=== PATIENT | male | born 1940 | race Caucasian/White ===

== ENCOUNTER 2019-05-22 15:15 | Inpatient (IN) | payer MEDICARE ==
[~2019-05-22] VITALS: Ht 170.2 cm; Wt 106.6 kg
[2019-05-22 16:01] LABS: BASO # 0.1 x10^3/uL (0.0-0.2); BASO % 1 % (0-3); EOS # 0.1 x10^3/uL (0.0-0.7); EOS % 1 % (0-3); HEMATOCRIT 47.8 % (39.0-53.0); HEMOGLOBIN 15.9 g/dL (13.0-17.5); LYMPH # 0.9 x10^3/uL (1.0-4.8); LYMPH % 11 % (24-48); MEAN CORPUSCULAR HEMOGLOBIN 30 pg (25-35); MEAN CORPUSCULAR HGB CONC 33 g/dL (31-37); MEAN CORPUSCULAR VOLUME 91 fL (79-100); MONO # 0.5 x10^3/uL (0.0-1.1); MONO % 7 % (0-9); NEUT # 6.5 x10^3/uL (1.8-7.7); NEUT % 81 % (31-73); PLATELET COUNT 188 x10^3/uL (140-400); RED BLOOD COUNT 5.26 x10^6/uL (4.30-5.70); RED CELL DISTRIBUTION WIDTH 14.3 % (11.5-14.5); WHITE BLOOD COUNT 8.1 x10^3/uL (4.0-11.0)
[2019-05-22 16:11] LABS: CALCIUM 9.3 mg/dL (8.5-10.1); GFR 72.6
--- NOTE | 2019-05-22 16:13 | PHYS DOC ---
Past Medical History Past Medical History: Other Additional Past Medical Histor: LOWER EXTREMITY EDEMA Past Surgical History: No Surgical History Alcohol Use: Rarely Drug Use: None Adult General Chief Complaint Chief Complaint: LOWER EXTREMITY SWELLING HPI HPI Patient is a 78 year old male who presents with states for the past week he's an increase in left lower leg swelling and redness with drainage. The skin is red and warm. Patient's states he does not have a primary care provider and is o n no medications and has no known drug allergies. He rates his pain a 0 out of 10 at this time. Review of Systems Review of Systems Constitutional: Denies fever or chills [] Eyes: Denies change in visual acuity, redness, or eye pain [] HENT: Denies nasal congestion or sore throat [] Respiratory: Denies cough or shortness of breath [] Cardiovascular: No additional information not addressed in HPI [] GI: Denies abdominal pain, nausea, vomiting, bloody stools or diarrhea [] : Denies dysuria or hematuria [] Musculoskeletal: Denies back pain or joint pain [] Integument: Left lower leg swelling and redness. Denies rash or skin lesions [] Neurologic: Denies headache, focal weakness or sensory changes [] Endocrine: Denies polyuria or polydipsia [] All other systems were reviewed and found to be within normal limits, except as documented in this note. Current Medications Current Medications Current Medications Medications (Trade) Dose Ordered Sig/Rosita Start Time Stop Time Status Last Admin Dose Admin Cefazolin Sodium 50 ml @ 100 mls/hr 1X ONCE 05/22/19 17:15 05/22/19 17:44 Sodium Chloride 1,000 ml @ 1,000 mls/hr 1X ONCE 05/22/19 16:45 05/22/19 17:44 05/22/19 16:53 1,000 MLS/HR Vancomycin HCl (Vanco Per Pharmacy) 1 each PRN DAILY PRN 05/22/19 16:45 UNV Vancomycin HCl 2 gm/Sodium Chloride 500 ml @ 250 mls/hr 1X ONCE 05/22/19 17:00 05/22/19 18:59 05/22/19 17:02 250 MLS/HR Allergies Allergies Allergies Coded Allergies Type Severity Reaction Last Updated Verified No Known Drug Allergies 05/22/19 No Physical Exam Physical Exam Constitutional: Well developed, well nourished, no acute distress, non-toxic appearance. [] HENT: Normocephalic, atraumatic, bilateral external ears normal, oropharynx moist, no oral exudates, nose normal. [] Eyes: PERRLA, EOMI, conjunctiva normal, no discharge. [] Neck: Normal range of motion, no tenderness, supple, no stridor. [] Cardiovascular:Heart rate regular rhythm, no murmur [] Lungs & Thorax: Bilateral breath sounds clear to auscultation [] Abdomen: Bowel sounds normal, soft, no tenderness, no masses, no pulsatile ma sses. [] Skin: Left lower leg redness, weeping. Warm, dry, no erythema, no rash. [] Back: No tenderness, no CVA tenderness. [] Extremities: No tenderness, no cyanosis, no clubbing, ROM intact, left lower leg 3+ pitting edema, right lower leg 2+ pitting edema. [] Neurologic: Alert and oriented X 3, normal motor function, normal sensory function, no focal deficits noted. [] Psychologic: Affect normal, judgement normal, mood normal. [] Current Patient Data Vital Signs Vital Signs Date Time Temp Pulse Resp B/P (MAP) Pulse Ox O2 Delivery O2 Flow Rate FiO2 05/22/19 15:41 98.0 57 18 158/91 (113) 98 Room Air 98.0 Lab Values Laboratory Tests Test 05/22/19 15:40 White Blood Count 8.1 x10^3/uL (4.0-11.0) Red Blood Count 5.26 x10^6/uL (4.30-5.70) Hemoglobin 15.9 g/dL (13.0-17.5) Hematocrit 47.8 % (39.0-53.0) Mean Corpuscular Volume 91 fL (79-100) Mean Corpuscular Hemoglobin 30 pg (25-35) Mean Corpuscular Hemoglobin Concent 33 g/dL (31-37) Red Cell Distribution Width 14.3 % (11.5-14.5) Platelet Count 188 x10^3/uL (140-400) Neutrophils (%) (Auto) 81 % (31-73) H Lymphocytes (%) (Auto) 11 % (24-48) L Monocytes (%) (Auto) 7 % (0-9) Eosinophils (%) (Auto) 1 % (0-3) Basophils (%) (Auto) 1 % (0-3) Neutrophils # (Auto) 6.5 x10^3/uL (1.8-7.7) Lymphocytes # (Auto) 0.9 x10^3/uL (1.0-4.8) L Monocytes # (Auto) 0.5 x10^3/uL (0.0-1.1) Eosinophils # (Auto) 0.1 x10^3/uL (0.0-0.7) Basophils # (Auto) 0.1 x10^3/uL (0.0-0.2) Erythrocyte Sedimentation Rate 6 (0-15) Sodium Level 142 mmol/L (136-145) Potassium Level 4.0 mmol/L (3.5-5.1) Chloride Level 105 mmol/L (98-107) Carbon Dioxide Level 26 mmol/L (21-32) Anion Gap 11 (6-14) Blood Urea Nitrogen 18 mg/dL (8-26) Creatinine 1.0 mg/dL (0.7-1.3) Estimated GFR (Cockcroft-Gault) 72.6 BUN/Creatinine Ratio 18 (6-20) Glucose Level 120 mg/dL (70-99) H Lactic Acid Level 2.4 mmol/L (0.4-2.0) H Calcium Level 9.3 mg/dL (8.5-10.1) Total Bilirubin 0.8 mg/dL (0.2-1.0) Aspartate Amino Transferase (AST) 17 U/L (15-37) Alanine Aminotransferase (ALT) 17 U/L (16-63) Alkaline Phosphatase 82 U/L (46-116) C-Reactive Protein, Quantitative 18.5 mg/L (0-3.3) H Total Protein 7.9 g/dL (6.4-8.2) Albumin 3.8 g/dL (3.4-5.0) Albumin/Globulin Ratio 0.9 (1.0-1.7) L Laboratory Tests 05/22/19 15:40 Laboratory Tests 05/22/19 15:40 EKG EKG [] Radiology/Procedures Radiology/Procedures [] Impressions: IMAGING REPORT Signed PATIENT: WILFRID HSU ACCOUNT: [id number] : 1940 LOCATION: ER AGE: 78 SEX: M EXAM STATUS: REG ER ORD. PHYSICIAN: DOROTHY LACY APRN REASON: LT Leg swollen, pain PROCEDURE: VENOUS LOWER EXTREMITY LEFT Left lower extremity venous doppler ultrasound History: Swelling and pain Comparison: None Findings: Multiple grayscale, color, and duplex spectral analysis sonographic images were acquired of the left lower extremity veins to evaluate for the presence of DVT. There is abnormal echogenicity in the distal left superficial femoral vein and popliteal vein, apparently occluded. Left peroneal veins could also not be visualized. There is soft tissue swelling of the left calf. Left common femoral vein and proximal to mid left superficial femoral vein are patent, normal color flow and phasicity. There is normal color flow of the proximal left greater saphenous vein, also proximal left profunda femoris vein. Impression: 1. There is occlusive thrombus of the distal left superficial femoral vein and popliteal vein, left peroneal veins also not visualized. There is edema of left calf soft tissues. FOR INTERNAL CODING PURPOSES Critical result: Findings discussed with DOROTHY LACY at 05/22/2019 5:06 PM. RESULT CODE: (C) Electronically signed by: Baldo Barton MD (05/22/2019 5:07 PM) [id number] DICTATED and SIGNED BY: BALDO BARTON MD DATE: 05/22/19 170 Course & Med Decision Making Course & Med Decision Making Patient is a 78 year old male who presents with states for the past week he's an increase in left lower leg swelling and redness with drainage. The skin is red and warm. Patient's states he does not have a primary care provider and is on no medications and has no known drug allergies. He rates his pain a 0 out of 10 at this time. Right lower leg has 2+ pitting edema in left lower leg is red a nd swollen with 3+ pitting edema. Pedal pulses present on the right and I cannot fill it on the left side due to the swelling. Skin is blanchable and refill less than 3 seconds. Left lower leg skin is red, weeping, hot to touch. The redness is circumferential around the left lower leg. Patient has no calf tenderness with palpation. Vital signs within normal limits. Patient denies fever, shortness of air, weakness, body aches, nausea, vomiting, dizziness, dysuria, chest pain, numbness or tingling. Alert and oriented. Walks with a steady gait. Speaks in full clear sentences. Skin pink warm and dry. Mucous membranes moist. Lungs are clear to auscultation all lobes. Heart regular without murmur. Upper extremities have no edema. Patient is placed on Vancomycin, cefazolin and Eliquis BID per Dr Mancini. Patient admitted per Dr Mancini. Dragon Disclaimer Alpesh Disclaimer This electronic medical record was generated, in whole or in part, using a voice recognition dictation system. Departure Departure Impression: Primary Impression: Cellulitis Disposition: ADMITTED INPATIENT Admitting Physician: STANISLAV Condition: STABLE Referrals: NO PCP (PCP) Problem Qualifiers Primary Impression: Cellulitis Site of cellulitis: extremity Site of cellulitis of extremity: lower extremity Laterality: left Qualified Codes: L03.116 - Cellulitis of left lower limb DOROTHY LACY POLITICAL RESEARCH SCIENTIST May 22, 2019 16:13
[2019-05-22 16:25] LABS: ALBUMIN 3.8 g/dL (3.4-5.0); ALBUMIN/GLOBULIN RATIO 0.9 (1.0-1.7); C-REACTIVE PROTEIN 18.5 mg/L (0-3.3); TOTAL BILIRUBIN 0.8 mg/dL (0.2-1.0); TOTAL PROTEIN 7.9 g/dL (6.4-8.2)
[2019-05-22] MEDS ORDERED: VANCOMYCIN PER PHARMACY MC PRN (16:45)
[2019-05-22] MEDS ORDERED: IV NORMAL SALINE 1000ML BAG 1,000 ML IV ONE ×2 (16:45)
[2019-05-22] MEDS ORDERED: VANCOMYCIN 2 GM in IV NORMAL SALINE 500ML BAG 500 ML IV ONE (17:00)
--- NOTE | 2019-05-22 17:01 | PDOC1 ---
History and Physical Date of Admission Date of Admission DATE: 05/22/19 TIME: 17:01 Identification/Chief Complaint Chief Complaint Cellulitis Source Source: Patient History of Present Illness History of Present Illness Mr Lorenz is a 78 yo male with no PMHx, ex-smoker, has not seen a physician in over a decade, who presents with left leg swelling and progressive redness for the past week. He now notes he brushed it against a chair now has serous drainage. The skin is red and warm. He rates his pain a 2 out of 10 at this time. Left lower leg skin is red, weeping, hot to touch. The redness is circumferential around the left lower leg. He had elevated lactate of 2.4. CRP 18.5. No leukocytosis. Patient has no calf tenderness with palpation. Patient denies fever, shortness of air, weakness, body aches, nausea, vomiting, dizziness, dysuria, chest pain, numbness or tingling. No recent travel or sick contacts. He did have LLE US and it did show a superficial clot. Admitted for further care Past Medical History Cardiovascular: No pertinent hx Pulmonary: No pertinent hx GI: No pertinent hx Heme/Onc: No pertinent hx Hepatobiliary: No pertinent hx Psych: No pertinent hx Rheumatologic: No pertinent hx Infectious disease: No pertinent hx ENT: No pertinent hx Renal/: No pertinent hx Endocrine: No pertinent hx Dermatology: No pertinent hx Past Surgical History Past Surgical History: No pertinent history Family History Family History: High Cholestrol Social History Smoke: No ALCOHOL: rare Drugs: None Current Problem List Problem List Problems Medical Problems: (1) Cellulitis Status: Acute Current Medications Current Medications Current Medications Sodium Chloride 1,000 ml @ 1,000 mls/hr 1X ONCE IV Last administered on 05/22/19at 16:53; Start 05/22/19 at 16:45; Stop 05/22/19 at 17:44 Sodium Chloride 1,000 ml @ 1,000 mls/hr 1X ONCE IV Last administered on 05/22/19at 16:53; Start 05/22/19 at 16:45; Stop 05/22/19 at 17:44 Vancomycin HCl (Vanco Per Pharmacy) 1 each PRN DAILY PRN MC SEE COMMENTS; Start 05/22/19 at 16:45; Status UNV Vancomycin HCl 2 gm/Sodium Chloride 500 ml @ 250 mls/hr 1X ONCE IV ; Start 05/22/19 at 17:00; Stop 05/22/19 at 18:59 Allergies Allergies: Coded Allergies: No Known Drug Allergies (Unverified , 05/22/19) ROS General: YES: Fatigue, Malaise; No: Chills, Night Sweats, Appetite, Other PSYCHOLOGICAL ROS: No: Anxiety, Behavioral Disorder, Concentration difficultie, Decreased libido, Depression, Disorientation, Hallucinations, Hostility, Irritablity, Memory difficulties, Mood Swings, Obsessive thoughts, Physical abuse, Sexual abuse, Sleep disturbances, Suicidal ideation, Other Eyes: No Blurry vision, No Decreased vision, No Double vision, No Dry eyes, No Excessive tearing, No Eye Pain, No Itchy Eyes, No Loss of vision, No Photophobia, No Scotomata, No Uses contacts, No Uses glasses, No Other HEENT: No: Heacaches, Visual Changes, Hearing change, Nasal congestion, Nasal d ischarge, Oral lesions, Sinus pain, Sore Throat, Epistaxis, Sneezing, Snoring, Tinnitus, Vertigo, Vocal changes, Other ALLERGY AND IMMUNOLOGY: No: Hives, Insect Bite Sensitivity, Itchy/Watery Eyes, Nasal Congestion, Post Nasal Drip, Seasonal Allergies, Other Hematological and Lymphatic: No: Bleeding Problems, Blood Clots, Blood Transfusions, Brusing, Night Sweats, Pallor, Swollen Lymph Nodes, Other ENDOCRINE: No: Breast Changes, Galactorrhea, Hair Pattern Changes, Hot Flashes, Malaise/lethargy, Mood Swings, Palpitations, Polydipsia/polyuria, Skin Changes, Temperature Intolerance, Unexpected Weight Changes, Other Breast: No New/Changing Breast Lumps, No Nipple changes, No Nipple discharge, No Other Respiratory: No: Cough, Hemoptysis, Orthopnea, Pleuritic Pain, Shortness of nella ath, SOB with excertion, Sputum Changes, Stridor, Tachypnea, Wheezing, Other Cardiovascular: No Chest Pain, No Palpitations, No Orthopnea, No Paroxysmal Noc. Dyspnea, No Edema, No Lt Headedness, No Other Gastrointestinal: No Nausea, No Vomiting, No Abdominal Pain, No Diarrhea, No Constipation, No Melena, No Hematochezia, No Other Genitourinary: No Dysuria, No Frequency, No Incontinence, No Hematuria, No Retention, No Discharge, No Urgency, No Pain, No Flank Pain, No Other, No , No , No , No , No , No , No Musculoskeletal: No Gait Disturbance, No Joint Pain, No Joint Stiffness, No Joint Swelling, No Muscle Pain, No Muscular Weakness, No Pain In:, No Swelling In:, No Other Neurological: No Behavorial Changes, No Bowel/Bladder ControlChng, No Confusion, No Dizziness, No Gait Disturbance, No Headaches, No Impaired Coord/balance, No Memory Loss, No Numbness/Tingling, No Seizures, No Speech Problems, No Tremors, No Visual Changes, No Weakness, No Other Skin: No Dry Skin, No Eczema, No Hair Changes, No Lumps, No Mole Changes, No Mottling, No Nail Changes, No Pruritus, No Rash, No Skin Lesion Changes, No Other, No Acne Physical Exam General: Alert, Oriented X3, Cooperative, No acute distress HEENT: Atraumatic, PERRLA, EOMI, Mucous membr. moist/pink Lungs: Clear to auscultation, Normal air movement Heart: S1S2, RRR, no gallops, no murmurs Abdomen: Normal bowel sounds, Soft, No tenderness, No hepatosplenomegaly, No masses Rectal Exam: not examined Extremities: No clubbing, No cyanosis, Normal pulses, Other (3+ edema left leg, tender and swollen) Skin: No breakdown, Other (6x8 cm circumferential redness of LLE with anterior weeping of serous fluid. hot to the touch) Neuro: Normal gait, Normal speech, Strength at 5/5 X4 ext, Normal tone, Sensation intact, Cranial nerves 3-12 NL, Reflexes 2+ Psych/Mental Status: Mental status NL, Mood NL Vitals Vitals Vital Signs Date Time Temp Pulse Resp B/P (MAP) Pulse Ox O2 Delivery O2 Flow Rate FiO2 05/22/19 15:41 98.0 57 18 158/91 (113) 98 Room Air 98.0 Labs Labs Laboratory Tests Test 05/22/19 15:40 White Blood Count 8.1 x10^3/uL (4.0-11.0) Red Blood Count 5.26 x10^6/uL (4.30-5.70) Hemoglobin 15.9 g/dL (13.0-17.5) Hematocrit 47.8 % (39.0-53.0) Mean Corpuscular Volume 91 fL (79-100) Mean Corpuscular Hemoglobin 30 pg (25-35) Mean Corpuscular Hemoglobin Concent 33 g/dL (31-37) Red Cell Distribution Width 14.3 % (11.5-14.5) Platelet Count 188 x10^3/uL (140-400) Neutrophils (%) (Auto) 81 % (31-73) Lymphocytes (%) (Auto) 11 % (24-48) Monocytes (%) (Auto) 7 % (0-9) Eosinophils (%) (Auto) 1 % (0-3) Basophils (%) (Auto) 1 % (0-3) Neutrophils # (Auto) 6.5 x10^3/uL (1.8-7.7) Lymphocytes # (Auto) 0.9 x10^3/uL (1.0-4.8) Monocytes # (Auto) 0.5 x10^3/uL (0.0-1.1) Eosinophils # (Auto) 0.1 x10^3/uL (0.0-0.7) Basophils # (Auto) 0.1 x10^3/uL (0.0-0.2) Sodium Level 142 mmol/L (136-145) Potassium Level 4.0 mmol/L (3.5-5.1) Chloride Level 105 mmol/L (98-107) Carbon Dioxide Level 26 mmol/L (21-32) Anion Gap 11 (6-14) Blood Urea Nitrogen 18 mg/dL (8-26) Creatinine 1.0 mg/dL (0.7-1.3) Estimated GFR (Cockcroft-Gault) 72.6 BUN/Creatinine Ratio 18 (6-20) Glucose Level 120 mg/dL (70-99) Lactic Acid Level 2.4 mmol/L (0.4-2.0) Calcium Level 9.3 mg/dL (8.5-10.1) Total Bilirubin 0.8 mg/dL (0.2-1.0) Aspartate Amino Transf (AST/SGOT) 17 U/L (15-37) Alanine Aminotransferase (ALT/SGPT) 17 U/L (16-63) Alkaline Phosphatase 82 U/L (46-116) C-Reactive Protein, Quantitative 18.5 mg/L (0-3.3) Total Protein 7.9 g/dL (6.4-8.2) Albumin 3.8 g/dL (3.4-5.0) Albumin/Globulin Ratio 0.9 (1.0-1.7) Laboratory Tests Test 05/22/19 15:40 White Blood Count 8.1 x10^3/uL (4.0-11.0) Red Blood Count 5.26 x10^6/uL (4.30-5.70) Hemoglobin 15.9 g/dL (13.0-17.5) Hematocrit 47.8 % (39.0-53.0) Mean Corpuscular Volume 91 fL (79-100) Mean Corpuscular Hemoglobin 30 pg (25-35) Mean Corpuscular Hemoglobin Concent 33 g/dL (31-37) Red Cell Distribution Width 14.3 % (11.5-14.5) Platelet Count 188 x10^3/uL (140-400) Neutrophils (%) (Auto) 81 % (31-73) Lymphocytes (%) (Auto) 11 % (24-48) Monocytes (%) (Auto) 7 % (0-9) Eosinophils (%) (Auto) 1 % (0-3) Basophils (%) (Auto) 1 % (0-3) Neutrophils # (Auto) 6.5 x10^3/uL (1.8-7.7) Lymphocytes # (Auto) 0.9 x10^3/uL (1.0-4.8) Monocytes # (Auto) 0.5 x10^3/uL (0.0-1.1) Eosinophils # (Auto) 0.1 x10^3/uL (0.0-0.7) Basophils # (Auto) 0.1 x10^3/uL (0.0-0.2) Sodium Level 142 mmol/L (136-145) Potassium Level 4.0 mmol/L (3.5-5.1) Chloride Level 105 mmol/L (98-107) Carbon Dioxide Level 26 mmol/L (21-32) Anion Gap 11 (6-14) Blood Urea Nitrogen 18 mg/dL (8-26) Creatinine 1.0 mg/dL (0.7-1.3) Estimated GFR (Cockcroft-Gault) 72.6 BUN/Creatinine Ratio 18 (6-20) Glucose Level 120 mg/dL (70-99) Lactic Acid Level 2.4 mmol/L (0.4-2.0) Calcium Level 9.3 mg/dL (8.5-10.1) Total Bilirubin 0.8 mg/dL (0.2-1.0) Aspartate Amino Transf (AST/SGOT) 17 U/L (15-37) Alanine Aminotransferase (ALT/SGPT) 17 U/L (16-63) Alkaline Phosphatase 82 U/L (46-116) C-Reactive Protein, Quantitative 18.5 mg/L (0-3.3) Total Protein 7.9 g/dL (6.4-8.2) Albumin 3.8 g/dL (3.4-5.0) Albumin/Globulin Ratio 0.9 (1.0-1.7) Images Images LLE US - 1. There is occlusive thrombus of the distal left superficial femoral vein and popliteal vein, left peroneal veins also not visualized. There is edema of left calf soft tissues. VTE Prophylaxis Ordered VTE Prophylaxis Devices: No VTE Pharmacological Prophylaxi: Yes Assessment/Plan Assessment/Plan A/P: LLE cellulitis - significantly swollen and red. will give vancomycin and cefazolin. Check MRSA Nares and ASO titer. CBC in am. BMP daily LLE DVT - with both superficial femoral and popliteal clots, will given eliquis 10mg BID for 7 days, then 5mg BID thereafter. Hyperglycemia - will screen for DM2, check poc glucose, low sliding scale Lactic acidosis - related to cellulitis, will give IVF FEN - General PPX - eliquis FULL CODE Dispo - inpatient for LLE cellulitis complicated by DVT, likely 2 midnights. CYNDIE ESCOBAR MD May 22, 2019 17:01
--- NOTE | 2019-05-22 17:09 | RAD ---
Left lower extremity venous doppler ultrasound History: Swelling and pain Comparison: None Findings: Multiple grayscale, color, and duplex spectral analysis sonographic images were acquired of the left lower extremity veins to evaluate for the presence of DVT. There is abnormal echogenicity in the distal left superficial femoral vein and popliteal vein, apparently occluded. Left peroneal veins could also not be visualized. There is soft tissue swelling of the left calf. Left common femoral vein and proximal to mid left superficial femoral vein are patent, normal color flow and phasicity. There is normal color flow of the proximal left greater saphenous vein, also proximal left profunda femoris vein. Impression: 1. There is occlusive thrombus of the distal left superficial femoral vein and popliteal vein, left peroneal veins also not visualized. There is edema of left calf soft tissues. FOR INTERNAL CODING PURPOSES Critical result: Findings discussed with DOROTHY LACY at 05/22/2019 5:06 PM. RESULT CODE: (C) Electronically signed by: Chava Espinal MD (05/22/2019 5:07 PM) [id number]
[2019-05-22] MEDS ORDERED: ACETAMINOPHEN 325 MG TABLET. PO PRN (17:30)
[2019-05-22] MEDS ORDERED: ONDANSETRON PF 4 MG/2 ML VIAL. IV PRN (17:30)
[2019-05-22] MEDS ORDERED: fentaNYL PF VIAL 100 MCG/2 ML VIAL IV PRN (17:30)
--- NOTE | 2019-05-22 18:28 | NUR ---
Pharmacy Vancomycin Dosing Note S:Consulted to monitor and dose vancomycin started 05/22/19. O:WILFRID HSU is a 78 year old M with Cellulitis . Height: 5 feet, 6 inches Weight: 104.180016 kg [place] Body Weight: 63.80 Adjusted Body Weight: 79.88 Dosing Weight: Actual Other Antibiotics: ZOSYN LABS: Last BUN: 18 Last Creatinine: 1.0 Creatinine Clearance: mL/min Last WBC: 8.1 Last Procalcitonin: Tmax (past 24 hours): 98 Microbiology: I/O: Drug Levels: Last level: on at Last dose given at Vancomycin Dosing: Loading Dose: 2000 mg x1 Dosing Weight: Actual Target Trough: 10-20 A: Based on: WEIGHT AND RENAL FUNCTION, VANCOMYCIN 2GM IV BOLUS GIVEN, P: 1. Begin Vancomycin 1500 mg IV q12h 2. Follow up Trough level on 05/24/19 at 0430 3. Pharmacy will continue to monitor, follow and adjust therapy as needed. NATALIYA OSORIO [facility], 05/22/19 [id number]
[2019-05-22 19:00] VITALS: BP 143/78
[2019-05-22] MEDS ORDERED: DEXTROSE 50% 25 GM / 50ML DISP.SYRIN. IV PRN (20:30)
[2019-05-22] MEDS: APIXABAN 5 MG TABLET. PO SCH (20:52)
[2019-05-22 23:10] VITALS: BP 133/70
[2019-05-23 02:39] LABS: BASO % 1 % (0-3); EOS # 0.2 x10^3/uL (0.0-0.7); EOS % 3 % (0-3); HEMATOCRIT 42.2 % (39.0-53.0); HEMOGLOBIN 14.1 g/dL (13.0-17.5); LYMPH # 1.1 x10^3/uL (1.0-4.8); LYMPH % 18 % (24-48); MEAN CORPUSCULAR HEMOGLOBIN 30 pg (25-35); MEAN CORPUSCULAR HGB CONC 33 g/dL (31-37); MEAN CORPUSCULAR VOLUME 91 fL (79-100); MONO # 0.5 x10^3/uL (0.0-1.1); MONO % 9 % (0-9); NEUT # 4.3 x10^3/uL (1.8-7.7); NEUT % 70 % (31-73); PLATELET COUNT 153 x10^3/uL (140-400); RED BLOOD COUNT 4.65 x10^6/uL (4.30-5.70); RED CELL DISTRIBUTION WIDTH 14.5 % (11.5-14.5); WHITE BLOOD COUNT 6.2 x10^3/uL (4.0-11.0)
[2019-05-23 03:20] VITALS: BP 123/69
[2019-05-23] MEDS ORDERED: VANCOMYCIN 1.5 GM in IV NORMAL SALINE 500ML BAG 500 ML IV SCH (05:00)
[2019-05-23] MEDS ORDERED: ceFAZolin SODIUM IV Push 1 GM VIAL. IVP SCH (06:00)
[2019-05-23] MEDS ORDERED: ceFAZolin SODIUM 1 GM in IV DEXTROSE 5% 50 ML IV SCH (06:00)
[2019-05-23 07:25] VITALS: BP 145/74
[2019-05-23] MEDS: INSULIN LISPRO 300 UNITS/3 ML INSULN.PEN. SQ SCH ×2 (08:00→12:00)
--- NOTE | 2019-05-23 08:20 | PDOC ---
PROGRESS NOTES Chief Complaint Chief Complaint A/P: LLE cellulitis - significantly swollen and red. will give vancomycin and cefazolin. Check MRSA Nares and ASO titer. CBC in am. BMP daily LLE DVT - with both superficial femoral and popliteal clots, will given eliquis 10mg BID for 7 days, then 5mg BID thereafter. Hyperglycemia - will screen for DM2, check poc glucose, low sliding scale Lactic acidosis - related to cellulitis, will give IVF FEN - General PPX - eliquis FULL CODE Dispo - inpatient for LLE cellulitis complicated by DVT, likely 2 midnights. History of Present Illness History of Present Illness Mr Lorenz is a 78 yo male with no PMHx, ex-smoker, has not seen a physician in over a decade, who presents with left leg swelling and progressive redness for the past week. He now notes he brushed it against a chair now has serous drainage. The skin is red and warm. He rates his pain a 2 out of 10 at this time. Left lower leg skin is red, weeping, hot to touch. The redness is circumferential around the left lower leg. He had elevated lactate of 2.4. CRP 18.5. No leukocytosis. Patient has no calf tenderness with palpation. Patient denies fever, shortness of air, weakness, body aches, nausea, vomiting, dizziness, dysuria, chest pain, numbness or tingling. No recent travel or sick contacts. He did have LLE US and it did show popliteal clot. This morning his LLE redness is significantly improved. He has walked without pain. Has a bit of an unsteady gait today. He has been seen by ID, we have discussed switching to oral antibiotics given his quick improvement. Will assess need for gait assistance with PT and consider d/c later today with eliquis and doxycycline. Vitals Vitals Vital Signs Date Time Temp Pulse Resp B/P (MAP) Pulse Ox O2 Delivery O2 Flow Rate FiO2 05/23/19 07:25 97.8 51 18 145/74 (97) 98 Room Air 97.8 Physical Exam General: Alert, Oriented X3, Cooperative, No acute distress Heart: Regular rate, Normal S1, Normal S2 Lungs: Clear Abdomen: Normal bowel sounds, Soft, No tenderness, No hepatosplenomegaly, No masses Extremities: No clubbing, No cyanosis, Normal pulses, Other (3+ edema left leg, tender and swollen) Skin: No breakdown, Other (6x8 cm circumferential redness of LLE with anterior weeping of serous fluid. hot to the touch) Labs LABS Laboratory Tests Test 05/22/19 15:40 05/23/19 02:00 05/23/19 07:38 White Blood Count 8.1 x10^3/uL (4.0-11.0) 6.2 x10^3/uL (4.0-11.0) Red Blood Count 5.26 x10^6/uL (4.30-5.70) 4.65 x10^6/uL (4.30-5.70) Hemoglobin 15.9 g/dL (13.0-17.5) 14.1 g/dL (13.0-17.5) Hematocrit 47.8 % (39.0-53.0) 42.2 % (39.0-53.0) Mean Corpuscular Volume 91 fL (79-100) 91 fL (79-100) Mean Corpuscular Hemoglobin 30 pg (25-35) 30 pg (25-35) Mean Corpuscular Hemoglobin Concent 33 g/dL (31-37) 33 g/dL (31-37) Red Cell Distribution Width 14.3 % (11.5-14.5) 14.5 % (11.5-14.5) Platelet Count 188 x10^3/uL (140-400) 153 x10^3/uL (140-400) Neutrophils (%) (Auto) 81 % (31-73) 70 % (31-73) Lymphocytes (%) (Auto) 11 % (24-48) 18 % (24-48) Monocytes (%) (Auto) 7 % (0-9) 9 % (0-9) Eosinophils (%) (Auto) 1 % (0-3) 3 % (0-3) Basophils (%) (Auto) 1 % (0-3) 1 % (0-3) Neutrophils # (Auto) 6.5 x10^3/uL (1.8-7.7) 4.3 x10^3/uL (1.8-7.7) Lymphocytes # (Auto) 0.9 x10^3/uL (1.0-4.8) 1.1 x10^3/uL (1.0-4.8) Monocytes # (Auto) 0.5 x10^3/uL (0.0-1.1) 0.5 x10^3/uL (0.0-1.1) Eosinophils # (Auto) 0.1 x10^3/uL (0.0-0.7) 0.2 x10^3/uL (0.0-0.7) Basophils # (Auto) 0.1 x10^3/uL (0.0-0.2) 0.0 x10^3/uL (0.0-0.2) Erythrocyte Sedimentation Rate 6 (0-15) Sodium Level 142 mmol/L (136-145) Potassium Level 4.0 mmol/L (3.5-5.1) Chloride Level 105 mmol/L (98-107) Carbon Dioxide Level 26 mmol/L (21-32) Anion Gap 11 (6-14) Blood Urea Nitrogen 18 mg/dL (8-26) Creatinine 1.0 mg/dL (0.7-1.3) Estimated GFR (Cockcroft-Gault) 72.6 BUN/Creatinine Ratio 18 (6-20) Glucose Level 120 mg/dL (70-99) Lactic Acid Level 2.4 mmol/L (0.4-2.0) 1.0 mmol/L (0.4-2.0) Calcium Level 9.3 mg/dL (8.5-10.1) Total Bilirubin 0.8 mg/dL (0.2-1.0) Aspartate Amino Transf (AST/SGOT) 17 U/L (15-37) Alanine Aminotransferase (ALT/SGPT) 17 U/L (16-63) Alkaline Phosphatase 82 U/L (46-116) C-Reactive Protein, Quantitative 18.5 mg/L (0-3.3) Total Protein 7.9 g/dL (6.4-8.2) Albumin 3.8 g/dL (3.4-5.0) Albumin/Globulin Ratio 0.9 (1.0-1.7) Glucose (Fingerstick) 88 mg/dL (70-99) Assessment and Plan Assessmemt and Plan Problems Medical Problems: (1) Cellulitis Status: Acute Comment Review of Relevant I have reviewed the following items aixa (where applicable) has been applied. Labs Laboratory Tests Test 05/22/19 15:40 05/23/19 02:00 05/23/19 07:38 White Blood Count 8.1 x10^3/uL (4.0-11.0) 6.2 x10^3/uL (4.0-11.0) Red Blood Count 5.26 x10^6/uL (4.30-5.70) 4.65 x10^6/uL (4.30-5.70) Hemoglobin 15.9 g/dL (13.0-17.5) 14.1 g/dL (13.0-17.5) Hematocrit 47.8 % (39.0-53.0) 42.2 % (39.0-53.0) Mean Corpuscular Volume 91 fL (79-100) 91 fL (79-100) Mean Corpuscular Hemoglobin 30 pg (25-35) 30 pg (25-35) Mean Corpuscular Hemoglobin Concent 33 g/dL (31-37) 33 g/dL (31-37) Red Cell Distribution Width 14.3 % (11.5-14.5) 14.5 % (11.5-14.5) Platelet Count 188 x10^3/uL (140-400) 153 x10^3/uL (140-400) Neutrophils (%) (Auto) 81 % (31-73) 70 % (31-73) Lymphocytes (%) (Auto) 11 % (24-48) 18 % (24-48) Monocytes (%) (Auto) 7 % (0-9) 9 % (0-9) Eosinophils (%) (Auto) 1 % (0-3) 3 % (0-3) Basophils (%) (Auto) 1 % (0-3) 1 % (0-3) Neutrophils # (Auto) 6.5 x10^3/uL (1.8-7.7) 4.3 x10^3/uL (1.8-7.7) Lymphocytes # (Auto) 0.9 x10^3/uL (1.0-4.8) 1.1 x10^3/uL (1.0-4.8) Monocytes # (Auto) 0.5 x10^3/uL (0.0-1.1) 0.5 x10^3/uL (0.0-1.1) Eosinophils # (Auto) 0.1 x10^3/uL (0.0-0.7) 0.2 x10^3/uL (0.0-0.7) Basophils # (Auto) 0.1 x10^3/uL (0.0-0.2) 0.0 x10^3/uL (0.0-0.2) Erythrocyte Sedimentation Rate 6 (0-15) Sodium Level 142 mmol/L (136-145) Potassium Level 4.0 mmol/L (3.5-5.1) Chloride Level 105 mmol/L (98-107) Carbon Dioxide Level 26 mmol/L (21-32) Anion Gap 11 (6-14) Blood Urea Nitrogen 18 mg/dL (8-26) Creatinine 1.0 mg/dL (0.7-1.3) Estimated GFR (Cockcroft-Gault) 72.6 BUN/Creatinine Ratio 18 (6-20) Glucose Level 120 mg/dL (70-99) Lactic Acid Level 2.4 mmol/L (0.4-2.0) 1.0 mmol/L (0.4-2.0) Calcium Level 9.3 mg/dL (8.5-10.1) Total Bilirubin 0.8 mg/dL (0.2-1.0) Aspartate Amino Transf (AST/SGOT) 17 U/L (15-37) Alanine Aminotransferase (ALT/SGPT) 17 U/L (16-63) Alkaline Phosphatase 82 U/L (46-116) C-Reactive Protein, Quantitative 18.5 mg/L (0-3.3) Total Protein 7.9 g/dL (6.4-8.2) Albumin 3.8 g/dL (3.4-5.0) Albumin/Globulin Ratio 0.9 (1.0-1.7) Glucose (Fingerstick) 88 mg/dL (70-99) Laboratory Tests Test 05/22/19 15:40 05/23/19 02:00 05/23/19 07:38 White Blood Count 8.1 x10^3/uL (4.0-11.0) 6.2 x10^3/uL (4.0-11.0) Red Blood Count 5.26 x10^6/uL (4.30-5.70) 4.65 x10^6/uL (4.30-5.70) Hemoglobin 15.9 g/dL (13.0-17.5) 14.1 g/dL (13.0-17.5) Hematocrit 47.8 % (39.0-53.0) 42.2 % (39.0-53.0) Mean Corpuscular Volume 91 fL (79-100) 91 fL (79-100) Mean Corpuscular Hemoglobin 30 pg (25-35) 30 pg (25-35) Mean Corpuscular Hemoglobin Concent 33 g/dL (31-37) 33 g/dL (31-37) Red Cell Distribution Width 14.3 % (11.5-14.5) 14.5 % (11.5-14.5) Platelet Count 188 x10^3/uL (140-400) 153 x10^3/uL (140-400) Neutrophils (%) (Auto) 81 % (31-73) 70 % (31-73) Lymphocytes (%) (Auto) 11 % (24-48) 18 % (24-48) Monocytes (%) (Auto) 7 % (0-9) 9 % (0-9) Eosinophils (%) (Auto) 1 % (0-3) 3 % (0-3) Basophils (%) (Auto) 1 % (0-3) 1 % (0-3) Neutrophils # (Auto) 6.5 x10^3/uL (1.8-7.7) 4.3 x10^3/uL (1.8-7.7) Lymphocytes # (Auto) 0.9 x10^3/uL (1.0-4.8) 1.1 x10^3/uL (1.0-4.8) Monocytes # (Auto) 0.5 x10^3/uL (0.0-1.1) 0.5 x10^3/uL (0.0-1.1) Eosinophils # (Auto) 0.1 x10^3/uL (0.0-0.7) 0.2 x10^3/uL (0.0-0.7) Basophils # (Auto) 0.1 x10^3/uL (0.0-0.2) 0.0 x10^3/uL (0.0-0.2) Erythrocyte Sedimentation Rate 6 (0-15) Sodium Level 142 mmol/L (136-145) Potassium Level 4.0 mmol/L (3.5-5.1) Chloride Level 105 mmol/L (98-107) Carbon Dioxide Level 26 mmol/L (21-32) Anion Gap 11 (6-14) Blood Urea Nitrogen 18 mg/dL (8-26) Creatinine 1.0 mg/dL (0.7-1.3) Estimated GFR (Cockcroft-Gault) 72.6 BUN/Creatinine Ratio 18 (6-20) Glucose Level 120 mg/dL (70-99) Lactic Acid Level 2.4 mmol/L (0.4-2.0) 1.0 mmol/L (0.4-2.0) Calcium Level 9.3 mg/dL (8.5-10.1) Total Bilirubin 0.8 mg/dL (0.2-1.0) Aspartate Amino Transf (AST/SGOT) 17 U/L (15-37) Alanine Aminotransferase (ALT/SGPT) 17 U/L (16-63) Alkaline Phosphatase 82 U/L (46-116) C-Reactive Protein, Quantitative 18.5 mg/L (0-3.3) Total Protein 7.9 g/dL (6.4-8.2) Albumin 3.8 g/dL (3.4-5.0) Albumin/Globulin Ratio 0.9 (1.0-1.7) Glucose (Fingerstick) 88 mg/dL (70-99) Medications Current Medications Sodium Chloride 1,000 ml @ 1,000 mls/hr 1X ONCE IV Last administered on 05/22/19at 16:53; Start 05/22/19 at 16:45; Stop 05/22/19 at 17:44; Status DC Sodium Chloride 1,000 ml @ 1,000 mls/hr 1X ONCE IV Last administered on 05/22/19at 16:53; Start 05/22/19 at 16:45; Stop 05/22/19 at 17:44; Status DC Vancomycin HCl (Vanco Per Pharmacy) 1 each PRN DAILY PRN MC SEE COMMENTS Last administered on 05/22/19at 18:27; Start 05/22/19 at 16:45 Vancomycin HCl 2 gm/Sodium Chloride 500 ml @ 250 mls/hr 1X ONCE IV Last administered on 05/22/19at 17:02; Start 05/22/19 at 17:00; Stop 05/22/19 at 18:59; Status DC Cefazolin Sodium 50 ml @ 100 mls/hr 1X ONCE IV Last administered on 05/22/19at 19:42; Start 05/22/19 at 17:15; Stop 05/22/19 at 17:44; Status DC Apixaban (Eliquis) 10 mg BID PO Last administered on 05/22/19at 20:52; Start 05/22/19 at 21:00 Ondansetron HCl (Zofran) 4 mg PRN Q8HRS PRN IV NAUSEA/VOMITING; Start 05/22/19 at 17:30; Stop 05/23/19 at 17:29 Fentanyl Citrate (Fentanyl 2ml Vial) 50 mcg PRN Q1HR PRN IV PAIN; Start 05/22/19 at 17:30; Stop 05/23/19 at 17:29 Acetaminophen (Tylenol) 650 mg PRN Q4HRS PRN PO FEVER; Start 05/22/19 at 17:30; Stop 05/23/19 at 17:29 Vancomycin HCl 1.5 gm/Sodium Chloride 500 ml @ 250 mls/hr Q12H IV Last administered on 05/23/19at 04:57; Start 05/23/19 at 05:00 Vancomycin HCl (Vancomycin Trough Level) 1 each 1X ONCE MC ; Start 05/24/19 at 04:30; Stop 05/24/19 at 04:31 Insulin Human Lispro (HumaLOG) 0-5 UNITS TIDWMEALS SQ ; Start 05/23/19 at 08:00 Dextrose (Dextrose 50%-Water Syringe) 12.5 gm PRN Q15MIN PRN IV SEE COMMENTS; Start 05/22/19 at 20:30 Cefazolin Sodium 1 gm/Dextrose 50 ml @ 100 mls/hr Q8HRS IV ; Start 05/23/19 at 06:00; Status UNV Cefazolin Sodium (Ancef) 1 gm Q8HRS IVP Last administered on 05/23/19at 04:56; Start 05/23/19 at 06:00 Vitals/I & O Vital Sign - Last 24 Hours 05/22/19 05/22/19 05/22/19 05/22/19 15:41 16:06 16:36 17:06 Temp 98.0 98.0 Pulse 57 80 90 72 Resp 18 24 19 25 B/P (MAP) 158/91 (113) 119/72 (88) 127/84 (98) 136/80 (98) Pulse Ox 98 93 95 98 O2 Delivery Room Air Room Air Room Air Room Air 05/22/19 05/22/19 05/22/19 05/22/19 17:36 18:06 19:00 20:00 Temp 97.8 97.8 Pulse 66 64 59 Resp 19 20 B/P (MAP) 144/84 (104) 142/73 (96) 143/78 (99) Pulse Ox 98 97 94 O2 Delivery Room Air Room Air Room Air Room Air 05/22/19 05/23/19 05/23/19 23:10 03:20 07:25 Temp 97.7 98.0 97.8 97.7 98.0 97.8 Pulse 54 55 51 Resp 20 18 18 B/P (MAP) 133/70 (91) 123/69 (87) 145/74 (97) Pulse Ox 94 94 98 O2 Delivery Room Air Room Air Intake and Output 05/22/19 05/22/19 05/23/19 15:00 23:00 07:00 Intake Total 100 ml 300 ml Balance 100 ml 300 ml CYNDIE ESCOBAR MD May 23, 2019 08:20
[2019-05-23] MEDS: APIXABAN 5 MG TABLET. PO SCH (10:03)
[2019-05-23 11:05] VITALS: BP 141/75
[2019-05-23] MEDS ORDERED: DOXY100C14 PO (12:19)
[2019-05-23] MEDS ORDERED: APIX5TAB PO (12:19)
--- NOTE | 2019-05-23 12:23 | PDOC3 ---
Discharge Summary Visit Information Date of Admission: May 22, 2019 Date of Discharge: May 23, 2019 Admitting Diagnosis: Left leg DVT, left leg cellulitis Final Diagnosis Problems Medical Problems: (1) Cellulitis Status: Acute Brief Hospital Course Allergies Allergies Coded Allergies Type Severity Reaction Last Updated Verified No Known Drug Allergies 05/22/19 No Vital Signs Vital Signs Date Time Temp Pulse Resp B/P (MAP) Pulse Ox O2 Delivery O2 Flow Rate FiO2 05/23/19 11:05 97.6 54 18 141/75 (97) 94 Room Air 97.6 Lab Results Laboratory Tests Test 05/22/19 15:40 05/23/19 02:00 05/23/19 07:38 05/23/19 12:01 White Blood Count 8.1 x10^3/uL (4.0-11.0) 6.2 x10^3/uL (4.0-11.0) Red Blood Count 5.26 x10^6/uL (4.30-5.70) 4.65 x10^6/uL (4.30-5.70) Hemoglobin 15.9 g/dL (13.0-17.5) 14.1 g/dL (13.0-17.5) Hematocrit 47.8 % (39.0-53.0) 42.2 % (39.0-53.0) Mean Corpuscular Volume 91 fL (79-100) 91 fL (79-100) Mean Corpuscular Hemoglobin 30 pg (25-35) 30 pg (25-35) Mean Corpuscular Hemoglobin Concent 33 g/dL (31-37) 33 g/dL (31-37) Red Cell Distribution Width 14.3 % (11.5-14.5) 14.5 % (11.5-14.5) Platelet Count 188 x10^3/uL (140-400) 153 x10^3/uL (140-400) Neutrophils (%) (Auto) 81 % (31-73) 70 % (31-73) Lymphocytes (%) (Auto) 11 % (24-48) 18 % (24-48) Monocytes (%) (Auto) 7 % (0-9) 9 % (0-9) Eosinophils (%) (Auto) 1 % (0-3) 3 % (0-3) Basophils (%) (Auto) 1 % (0-3) 1 % (0-3) Neutrophils # (Auto) 6.5 x10^3/uL (1.8-7.7) 4.3 x10^3/uL (1.8-7.7) Lymphocytes # (Auto) 0.9 x10^3/uL (1.0-4.8) 1.1 x10^3/uL (1.0-4.8) Monocytes # (Auto) 0.5 x10^3/uL (0.0-1.1) 0.5 x10^3/uL (0.0-1.1) Eosinophils # (Auto) 0.1 x10^3/uL (0.0-0.7) 0.2 x10^3/uL (0.0-0.7) Basophils # (Auto) 0.1 x10^3/uL (0.0-0.2) 0.0 x10^3/uL (0.0-0.2) Erythrocyte Sedimentation Rate 6 (0-15) Sodium Level 142 mmol/L (136-145) Potassium Level 4.0 mmol/L (3.5-5.1) Chloride Level 105 mmol/L (98-107) Carbon Dioxide Level 26 mmol/L (21-32) Anion Gap 11 (6-14) Blood Urea Nitrogen 18 mg/dL (8-26) Creatinine 1.0 mg/dL (0.7-1.3) Estimated GFR (Cockcroft-Gault) 72.6 BUN/Creatinine Ratio 18 (6-20) Glucose Level 120 mg/dL (70-99) Lactic Acid Level 2.4 mmol/L (0.4-2.0) 1.0 mmol/L (0.4-2.0) Calcium Level 9.3 mg/dL (8.5-10.1) Total Bilirubin 0.8 mg/dL (0.2-1.0) Aspartate Amino Transf (AST/SGOT) 17 U/L (15-37) Alanine Aminotransferase (ALT/SGPT) 17 U/L (16-63) Alkaline Phosphatase 82 U/L (46-116) C-Reactive Protein, Quantitative 18.5 mg/L (0-3.3) Total Protein 7.9 g/dL (6.4-8.2) Albumin 3.8 g/dL (3.4-5.0) Albumin/Globulin Ratio 0.9 (1.0-1.7) Glucose (Fingerstick) 88 mg/dL (70-99) 86 mg/dL (70-99) Laboratory Tests Test 05/22/19 15:40 05/23/19 02:00 05/23/19 07:38 05/23/19 12:01 White Blood Count 8.1 x10^3/uL (4.0-11.0) 6.2 x10^3/uL (4.0-11.0) Red Blood Count 5.26 x10^6/uL (4.30-5.70) 4.65 x10^6/uL (4.30-5.70) Hemoglobin 15.9 g/dL (13.0-17.5) 14.1 g/dL (13.0-17.5) Hematocrit 47.8 % (39.0-53.0) 42.2 % (39.0-53.0) Mean Corpuscular Volume 91 fL (79-100) 91 fL (79-100) Mean Corpuscular Hemoglobin 30 pg (25-35) 30 pg (25-35) Mean Corpuscular Hemoglobin Concent 33 g/dL (31-37) 33 g/dL (31-37) Red Cell Distribution Width 14.3 % (11.5-14.5) 14.5 % (11.5-14.5) Platelet Count 188 x10^3/uL (140-400) 153 x10^3/uL (140-400) Neutrophils (%) (Auto) 81 % (31-73) 70 % (31-73) Lymphocytes (%) (Auto) 11 % (24-48) 18 % (24-48) Monocytes (%) (Auto) 7 % (0-9) 9 % (0-9) Eosinophils (%) (Auto) 1 % (0-3) 3 % (0-3) Basophils (%) (Auto) 1 % (0-3) 1 % (0-3) Neutrophils # (Auto) 6.5 x10^3/uL (1.8-7.7) 4.3 x10^3/uL (1.8-7.7) Lymphocytes # (Auto) 0.9 x10^3/uL (1.0-4.8) 1.1 x10^3/uL (1.0-4.8) Monocytes # (Auto) 0.5 x10^3/uL (0.0-1.1) 0.5 x10^3/uL (0.0-1.1) Eosinophils # (Auto) 0.1 x10^3/uL (0.0-0.7) 0.2 x10^3/uL (0.0-0.7) Basophils # (Auto) 0.1 x10^3/uL (0.0-0.2) 0.0 x10^3/uL (0.0-0.2) Erythrocyte Sedimentation Rate 6 (0-15) Sodium Level 142 mmol/L (136-145) Potassium Level 4.0 mmol/L (3.5-5.1) Chloride Level 105 mmol/L (98-107) Carbon Dioxide Level 26 mmol/L (21-32) Anion Gap 11 (6-14) Blood Urea Nitrogen 18 mg/dL (8-26) Creatinine 1.0 mg/dL (0.7-1.3) Estimated GFR (Cockcroft-Gault) 72.6 BUN/Creatinine Ratio 18 (6-20) Glucose Level 120 mg/dL (70-99) Lactic Acid Level 2.4 mmol/L (0.4-2.0) 1.0 mmol/L (0.4-2.0) Calcium Level 9.3 mg/dL (8.5-10.1) Total Bilirubin 0.8 mg/dL (0.2-1.0) Aspartate Amino Transf (AST/SGOT) 17 U/L (15-37) Alanine Aminotransferase (ALT/SGPT) 17 U/L (16-63) Alkaline Phosphatase 82 U/L (46-116) C-Reactive Protein, Quantitative 18.5 mg/L (0-3.3) Total Protein 7.9 g/dL (6.4-8.2) Albumin 3.8 g/dL (3.4-5.0) Albumin/Globulin Ratio 0.9 (1.0-1.7) Glucose (Fingerstick) 88 mg/dL (70-99) 86 mg/dL (70-99) Brief Hospital Course Mr Lorenz is a 78 yo male with no PMHx, ex-smoker, has not seen a physician in over a decade, who presents with left leg swelling and progressive redness for the past week. He now notes he brushed it against a chair now has serous drainage. The skin is red and warm. He rates his pain a 2 out of 10 at this time. Left lower leg skin is red, weeping, hot to touch. The redness is circumferential around the left lower leg. He had elevated lactate of 2.4. CRP 18.5. No leukocytosis. Patient has no calf tenderness with palpation. Patient denies fever, shortness of air, weakness, body aches, nausea, vomiting, dizziness, dysuria, chest pain, numbness or tingling. No recent travel or sick contacts. He did have LLE US and it did show popliteal clot. This morning his LLE redness is significantly improved. He has walked without pa in. Has a bit of an unsteady gait today. He has been seen by ID, we have discussed switching to oral antibiotics given his quick improvement. Will assess need for gait assistance with PT and consider d/c later today with eliquis and doxycycline. A/P: LLE cellulitis - significantly swollen and red. will give vancomycin and cefazolin. Check MRSA Nares and ASO titer. CBC in am. BMP daily LLE DVT - with both superficial femoral and popliteal clots, will given eliquis 10mg BID for 7 days, then 5mg BID thereafter. Hyperglycemia - will screen for DM2, check poc glucose, low sliding scale Lactic acidosis - related to cellulitis, will give IVF Greater than 30 minutes spent on d/c Discharge Information Condition at Discharge: Improved Follow Up: Weeks (1) Disposition/Orders: D/C to Home Scheduled Apixaban (Eliquis) 5 Mg Tablet, 5 MG PO BID for LEFT LEG DVT for 30 Days, #74 Ref 2 10mg BID for 7 days, then 5mg BID thereafter Prescribed by: CYNDIE ESCOBAR MD on 05/23/19 1219 Doxycycline Monohydrate (Doxycycline Monohydrate) 100 Mg Capsule, 1 CAP PO BID for CELLULITIS for 10 Days, #20 Prescribed by: CYNDIE ESCOBAR MD on 05/23/19 1219 CYNDIE ESCOBAR MD May 23, 2019 12:23
--- NOTE | 2019-05-23 12:28 | CONS ---
DATE OF CONSULTATION: 05/23/2019 REFERRING PHYSICIAN: Florentin Mancini MD. REASON FOR CONSULTATION: Mild left lower extremity cellulitis. HISTORY OF PRESENT ILLNESS: A 78-year-old male who presented to the ER on 05/22/2019 with complaints of increasing left lower extremity swelling, redness with draining wounds. He also had redness and warmth of the skin. He does not have a primary care physician, did not take any medications, denies taking any antibiotics. Denies any fevers, chills, nausea, vomiting, diarrhea or abdominal pain. The patient has balance issues and had 2-3 falls in the last 1 year, especially whenever [place] to [place] and tries to get up when he is praying, one time he fell on ice. He also sustained a superficial abrasion yesterday as he scrap against the bed. There is no drainage. He was started on empiric IV vancomycin. Doppler ultrasound revealed DVT in the peroneal veins of the left lower extremity. The patient is on Eliquis. The patient also had IV infiltration from IV vancomycin on the left upper extremity with swelling. Denies any chest pain, denies any shortness of breath. Denies any symptoms. REVIEW OF SYSTEMS: Denies any headache, visual disturbances, sore throat, difficulty swallowing, nausea, vomiting, diarrhea, abdominal pain, symptoms, new rash, except for above; sick contact. PAST MEDICAL HISTORY: Hyperglycemia, history of gait imbalance, history of fall 3 times in the last 1 year, DJD, stasis dermatitis. CURRENT MEDICATIONS: IV cefazolin and IV vancomycin. Other medications reviewed in medication list. ALLERGIES: No known drug allergies. SOCIAL HISTORY: Quit smoking. No ETOH. No illicit drug use. Lives alone at home. PHYSICAL EXAMINATION: VITAL SIGNS: Temperature 98, pulse 66, respiratory rate 25, blood pressure 144/85, oxygen saturation 98% on room air. GENERAL: Alert and oriented x 3 male in no acute distress, lying comfortably in bed, cooperative, pleasant. HEENT: Normocephalic, atraumatic. Anicteric. No thrush. Oral mucosa moist. NECK: Supple. No JVD. LUNGS: Clear bilaterally. No wheezing. HEART: S1, S2. No gallops or murmurs. ABDOMEN: Soft, nontender, nondistended. No rebound, no guarding. EXTREMITIES: Left lower extremity swelling present, edema 2+. Mild tenderness. Mild abrasion with very superficial redness. No purulence. MUSCULOSKELETAL: No joint swelling of the left ankle or left knee noted. No decreased range of motion. NEUROLOGIC: Alert and oriented x 3, grossly nonfocal. PSYCHIATRIC: Cooperative, appropriate mood and affect. LABORATORY DATA: WBC 6.2, hemoglobin 14.1, hematocrit 42.2, platelets 152. Sodium 142, potassium 4.0, chloride 105, bicarbonate 26, BUN 18, creatinine 1.0, glucose 102. Lactate 2.4, now 1.0, C-reactive 18.5, albumin 0.9. DIAGNOSTIC: Lower extremity ultrasound, left, there is occlusive thrombus of the distal left superficial femoral vein and popliteal vein. Left peroneal vein not visualized. There is edema of the left calf soft tissue. IMPRESSION: 1. Left lower extremity superficial deep venous thrombosis. 2. Mild superimposed cellulitis. 3. History of fall. 4. Hyperglycemia. 5. Lactic acidosis. 6. Superficial thrombophlebitis, left upper extremity from peripheral IV infiltration, improving. RECOMMENDATIONS: 1. Agree with discontinuing IV vancomycin and cefazolin. 2. The patient can be discharged on empiric doxycycline. 3. Side effects discussed. 4. Continue local care for left upper extremity superficial thrombophlebitis. 5. Follow up with PCP. 6. Follow up in our office if needed. 7. Okay to discharge from ID standpoint. 8. Discussed with RN. Thank you, Dr. Mancini for consulting Infectious Disease to participate in this patient's care. If you have any questions, do not hesitate to contact me. HORACIO AVILEZ MD DR: [email or web address] JOB#: [id number] / [id number]
--- NOTE | 2019-05-23 13:50 | NUR ---
Wound Care Attempted to see pt for wound consultation. Pt was sitting at bedside dressed, declined consultation, stating he is discharging at this time.
--- NOTE | 2019-05-23 13:53 | NUR ---
Discharge Note: [facility] [address] [place] [address] Discharge instructions and discharge home medications reviewed with Patient and a copy given. All questions have been answered and understanding verbalized. The following instructions and handouts were given: ABT&R, Cellulitis, Wound care Discontinued lines and drains: peripheral iv. Patient discharged to Home or Self Care with Family Member via Wheelchair
[2019-05-23 15:33] LABS: CALCIUM 8.1 mg/dL (8.5-10.1); CREATININE 0.7 mg/dL (0.7-1.3); GFR 109.6; POTASSIUM 3.9 mmol/L (3.5-5.1)
[2019-05-24 00:07] LABS: HEMOGLOBIN A1C 5.4 % (4.8-5.6)
== END 2019-05-23 13:55 | disposition home or self-care (01) | DRG 300 ==
LOC: ER 15:15 → 6 SOUTH 16:52
PROVIDERS: ADMIT Internal Medicine; ATTEND Internal Medicine
DX: I82.402 Acute embolism and thrombosis of unspecified deep veins of left lower extremity (principal); L03.116 Cellulitis of left lower limb; E87.2 Acidosis; I82.499 Acute embolism and thrombosis of other specified deep vein of unspecified lower extremity; R73.9 Hyperglycemia, unspecified; I87.2 Venous insufficiency (chronic) (peripheral); M19.90 Unspecified osteoarthritis, unspecified site; Z79.01 Long term (current) use of anticoagulants
CPT/HCPCS: 36415; 80048; 80053; 82962; 83036; 83605; 85025; 85651; 86060; 86140; 87040; 87641; 93971; J0690; J1815; J3370; J7030; J7040